=== PATIENT | female | born 1990 | race Caucasian/White ===

== ENCOUNTER 2020-12-03 19:31 | Inpatient (IN) | payer MEDICAID ==
[~2020-12-03] VITALS: Ht 152.4 cm; Wt 68.4 kg
[2020-12-03 21:18] LABS: BASO # 0.1 x10^3/uL (0.0-0.2); BASO % 1 % (0-3); EOS # 0.1 x10^3/uL (0.0-0.7); EOS % 1 % (0-3); HEMATOCRIT 40.1 % (36.0-47.0); LYMPH # 1.2 x10^3/uL (1.0-4.8); LYMPH % 7 % (24-48); MEAN CORPUSCULAR HEMOGLOBIN 40 pg (25-35); MEAN CORPUSCULAR HGB CONC 35 g/dL (31-37); MEAN CORPUSCULAR VOLUME 114 fL (79-100); MONO # 0.9 x10^3/uL (0.0-1.1); MONO % 5 % (0-9); NEUT # 15.4 x10^3/uL (1.8-7.7); NEUT % 87 % (31-73); PLATELET COUNT 220 x10^3/uL (140-400); RED BLOOD COUNT 3.52 x10^6/uL (3.50-5.40); RED CELL DISTRIBUTION WIDTH 15.3 % (11.5-14.5); WHITE BLOOD COUNT 17.6 x10^3/uL (4.0-11.0)
[2020-12-03] MEDS ORDERED: methylPREDNISolone SOD SUCC PF 125 MG/2 ML VIAL. IV ONE (21:30)
[2020-12-03] MEDS ORDERED: AMPICILLIN/SULBACTAM 3 GM in IV NORMAL SALINE 100ML 100 ML IV ONE (21:30)
[2020-12-03 21:31] LABS: ALBUMIN/GLOBULIN RATIO 1.1 (1.0-1.7); CALCIUM 9.2 mg/dL (8.5-10.1); CREATININE 0.9 mg/dL (0.6-1.0); MAGNESIUM 1.4 mg/dL (1.8-2.4); TOTAL BILIRUBIN 0.8 mg/dL (0.2-1.0); TOTAL PROTEIN 7.7 g/dL (6.4-8.2)
[2020-12-03 21:39] LABS: POTASSIUM 2.7 mmol/L (3.5-5.1)
[2020-12-03 21:42] LABS: % BANDS 2 % (0-9); % EOS 2 % (0-5); % LYMPHS 9 % (24-48); % MONOS 4 % (0-10); % SEGS 83 % (35-66)
[2020-12-03 21:43] LABS: PLT ESTIMATE ADEQUATE (ADEQUATE)
[2020-12-03 21:45] LABS: POLYCHROMASIA SLIGHT
[2020-12-03 21:48] LABS: TOXIC GRANULATION SLIGHT
--- NOTE | 2020-12-03 22:18 | PHYS DOC ---
Past Medical History Past Medical History: Fibromyalgia, Hypertension, Hypothyroid Past Surgical History: Tubal ligation Smoking Status: Current Every Day Smoker Alcohol Use: Occasionally General Adult EDM: Chief Complaint: SORE THROAT HPI: HPI: Patient is a 30 year old female who present to ER due to left-sided sore throat started earlier today. Patient denies any fever, no headache , no trouble breathing. Patient denies any abdominal pain. Patient has history of hypertension and hypothyroidism. Patient just moved here from [place] so she is not on any medication for high blood pressure. Review of Systems: Review of Systems: Constitutional: Denies fever or chills. [] Eyes: Denies change in visual acuity. [] HENT: Positive for sore throat Respiratory: Denies cough or shortness of breath. [] Cardiovascular: Denies chest pain or edema. [] GI: Denies abdominal pain, nausea, vomiting, bloody stools or diarrhea. [] : Denies dysuria. [] Musculoskeletal: Denies back pain or joint pain. [] Integument: Denies rash. [] Neurologic: Denies headache, focal weakness or sensory changes. [] Endocrine: Denies polyuria or polydipsia. [] Lymphatic: Denies swollen glands. [] Psychiatric: Denies depression or anxiety. [] Heart Score: C/O Chest Pain: N/A Risk Factors: Risk Factors: DM, Current or recent (<one month) smoker, HTN, HLP, family history of CAD, obesity. Risk Scores: Score 0 - 3: 2.5% MACE over next 6 weeks - Discharge Home Score 4 - 6: 20.3% MACE over next 6 weeks - Admit for Clinical Observation Score 7 - 10: 72.7% MACE over next 6 weeks - Early Invasive Strategies Current Medications: Current Medications Medications (Trade) Dose Ordered Sig/Ava Start Time Stop Time Status Last Admin Dose Admin Ampicillin Sodium/ Sulbactam Sodium 3 gm/Sodium Chloride 100 ml @ 200 mls/hr 1X ONCE 12/03/20 21:30 12/03/20 21:59 DC 12/03/20 21:21 200 MLS/HR Methylprednisolone Sodium Succinate (SOLU-Medrol 125MG VIAL) 125 mg 1X ONCE 12/03/20 21:30 12/03/20 21:31 DC 12/03/20 21:18 125 MG Potassium Chloride/Water 100 ml @ 100 mls/hr Q1H 12/03/20 22:15 12/04/20 00:14 UNV Allergies: Allergies: Allergies Coded Allergies Type Severity Reaction Last Updated Verified No Known Drug Allergies 12/03/20 No Physical Exam: PE: Constitutional: Well developed, well nourished, no acute distress, non-toxic appearance. [] HENT: Normocephalic, atraumatic, bilateral external ears normal, bilateral tonsillar hypertrophy with erythema, exudation on left tonsil. Tender to palpation on left side neck. No trismus. Eyes: PERRLA, EOMI, conjunctiva normal, no discharge. [] Neck: Normal range of motion, no tenderness, supple, no stridor. [] Cardiovascular:Heart rate regular rhythm, no murmur [] Lungs & Thorax: Bilateral breath sounds clear to auscultation [] Abdomen: Bowel sounds normal, soft, no tenderness, no masses, no pulsatile masses. [] Skin: Warm, dry, no erythema, no rash. [] Back: No tenderness, no CVA tenderness. [] Extremities: No tenderness, no cyanosis, no clubbing, ROM intact, no edema. [] Neurologic: Alert and oriented X 3, normal motor function, normal sensory function, no focal deficits noted. [] Psychologic: Affect normal, judgement normal, mood normal. [] Current Patient Data: Labs: Laboratory Tests Test 12/03/20 21:09 White Blood Count 17.6 x10^3/uL Red Blood Count 3.52 x10^6/uL Hemoglobin 14.0 g/dL Hematocrit 40.1 % Mean Corpuscular Volume 114 fL Mean Corpuscular Hemoglobin 40 pg Mean Corpuscular Hemoglobin Concent 35 g/dL Red Cell Distribution Width 15.3 % Platelet Count 220 x10^3/uL Neutrophils (%) (Auto) 87 % Lymphocytes (%) (Auto) 7 % Monocytes (%) (Auto) 5 % Eosinophils (%) (Auto) 1 % Basophils (%) (Auto) 1 % Neutrophils # (Auto) 15.4 x10^3/uL Lymphocytes # (Auto) 1.2 x10^3/uL Monocytes # (Auto) 0.9 x10^3/uL Eosinophils # (Auto) 0.1 x10^3/uL Basophils # (Auto) 0.1 x10^3/uL Segmented Neutrophils % 83 % Band Neutrophils % 2 % Lymphocytes % 9 % Monocytes % 4 % Eosinophils % 2 % Toxic Granulation Slight Platelet Estimate Adequate Polychromasia Slight Macrocytosis Marked Sodium Level 138 mmol/L Potassium Level 2.7 mmol/L Chloride Level 98 mmol/L Carbon Dioxide Level 30 mmol/L Anion Gap 10 Blood Urea Nitrogen 6 mg/dL Creatinine 0.9 mg/dL Estimated GFR (Cockcroft-Gault) 73.0 BUN/Creatinine Ratio 7 Glucose Level 108 mg/dL Calcium Level 9.2 mg/dL Magnesium Level 1.4 mg/dL Total Bilirubin 0.8 mg/dL Aspartate Amino Transf (AST/SGOT) 34 U/L Alanine Aminotransferase (ALT/SGPT) 32 U/L Alkaline Phosphatase 67 U/L Total Protein 7.7 g/dL Albumin 4.0 g/dL Albumin/Globulin Ratio 1.1 Current Medications Medications (Trade) Dose Ordered Sig/Ava Route PRN Reason Start Time Stop Time Status Last Admin Dose Admin Methylprednisolone Sodium Succinate (SOLU-Medrol 125MG VIAL) 125 mg 1X ONCE IV 12/03/20 21:30 12/03/20 21:31 DC 12/03/20 21:18 Ampicillin Sodium/ Sulbactam Sodium 3 gm/Sodium Chloride 100 ml @ 200 mls/hr 1X ONCE IV 12/03/20 21:30 12/03/20 21:59 DC 12/03/20 21:21 Potassium Chloride/Water 100 ml @ 100 mls/hr Q1H IV 12/03/20 23:00 12/04/20 00:59 12/03/20 22:28 Magnesium Sulfate 50 ml @ 25 mls/hr 1X ONCE IV 12/03/20 23:00 12/04/20 00:59 Potassium Chloride (Klor-Con) 40 meq 1X ONCE PO 12/03/20 22:30 12/03/20 22:31 DC Clonidine HCl (Catapres) 0.2 mg 1X ONCE PO 12/03/20 23:00 12/03/20 23:01 DC 12/03/20 23:40 Iohexol (Omnipaque 300 Mg/ml) 70 ml 1X ONCE IV 12/03/20 23:30 12/03/20 23:31 DC Info (CONTRAST GIVEN -- Rx MONITORING) 1 each PRN DAILY PRN MC SEE COMMENTS 7/5/21 23:00 12/05/20 22:59 Laboratory Tests Test 12/03/20 21:09 White Blood Count 17.6 x10^3/uL (4.0-11.0) H Red Blood Count 3.52 x10^6/uL (3.50-5.40) Hemoglobin 14.0 g/dL (12.0-15.5) Hematocrit 40.1 % (36.0-47.0) Mean Corpuscular Volume 114 fL (79-100) H Mean Corpuscular Hemoglobin 40 pg (25-35) H Mean Corpuscular Hemoglobin Concent 35 g/dL (31-37) Red Cell Distribution Width 15.3 % (11.5-14.5) H Platelet Count 220 x10^3/uL (140-400) Neutrophils (%) (Auto) 87 % (31-73) H Lymphocytes (%) (Auto) 7 % (24-48) L Monocytes (%) (Auto) 5 % (0-9) Eosinophils (%) (Auto) 1 % (0-3) Basophils (%) (Auto) 1 % (0-3) Neutrophils # (Auto) 15.4 x10^3/uL (1.8-7.7) H Lymphocytes # (Auto) 1.2 x10^3/uL (1.0-4.8) Monocytes # (Auto) 0.9 x10^3/uL (0.0-1.1) Eosinophils # (Auto) 0.1 x10^3/uL (0.0-0.7) Basophils # (Auto) 0.1 x10^3/uL (0.0-0.2) Segmented Neutrophils % 83 % (35-66) H Band Neutrophils % 2 % (0-9) Lymphocytes % 9 % (24-48) L Monocytes % 4 % (0-10) Eosinophils % 2 % (0-5) Toxic Granulation Slight Platelet Estimate Adequate (ADEQUATE) Polychromasia Slight Macrocytosis Marked Sodium Level 138 mmol/L (136-145) Potassium Level 2.7 mmol/L (3.5-5.1) *L Chloride Level 98 mmol/L (98-107) Carbon Dioxide Level 30 mmol/L (21-32) Anion Gap 10 (6-14) Blood Urea Nitrogen 6 mg/dL (7-20) L Creatinine 0.9 mg/dL (0.6-1.0) Estimated GFR (Cockcroft-Gault) 73.0 BUN/Creatinine Ratio 7 (6-20) Glucose Level 108 mg/dL (70-99) H Calcium Level 9.2 mg/dL (8.5-10.1) Magnesium Level 1.4 mg/dL (1.8-2.4) L Total Bilirubin 0.8 mg/dL (0.2-1.0) Aspartate Amino Transferase (AST) 34 U/L (15-37) Alanine Aminotransferase (ALT) 32 U/L (14-59) Alkaline Phosphatase 67 U/L (46-116) Total Protein 7.7 g/dL (6.4-8.2) Albumin 4.0 g/dL (3.4-5.0) Albumin/Globulin Ratio 1.1 (1.0-1.7) Laboratory Tests 12/03/20 21:09 Laboratory Tests 12/03/20 21:09 Vital Signs: Vital Signs Date Time Temp Pulse Resp B/P (MAP) Pulse Ox O2 Delivery O2 Flow Rate FiO2 12/03/20 20:55 98.3 120 20 205/127 (153) 99 Room Air 98.3 EKG: EKG: [] Radiology/Procedures: Radiology/Procedures: [][facility] [address] [place] [address] IMAGING REPORT Signed PATIENT: JULIAN PHILLIPS LACCOUNT: [id number] : 1990 LOCATION: ER AGE: 30 SEX: F EXAM STATUS: REG ER ORD. PHYSICIAN: MOOK MURILLO DO REASON: sorethroat, left side neck swelling and pain PROCEDURE: CT SOFT TISSUE NECK W/CONTRAST Examination: CT soft tissue neck with IV contrast HISTORY: History of sore throat, left-sided neck pain COMPARISON: None available Technique: Axial CT images of the soft tissue neck was performed with IV contrast. Coronal and sagittal reformats are performed Exposure: One or more of the following individualized dose reduction techniques were utilized for this examination: 1. Automated exposure control 2. Adjustment of the mA and/or kV according to patient size 3. Use of iterative reconstruction technique FINDINGS: The visualized parotid glands, submandibular glands grossly appears unremarkable.Minimal prominent bilateral tonsils without evidence of peritonsillar abscess. Small enlarged left cervical level II lymph nodes identified with the largest measuring 1.2 cm. The visualized vallecula, piriform sinuses, vocal cords, grossly appears unremarkable. Apical lungs are clear. No evidence of lytic bony destructive lesion. IMPRESSION: 1. Minimal prominent bilateral tonsils without evidence of peritonsillar abscess. 2. Small enlarged left cervical level 2 lymph nodes identified with the largest measuring 1.2 cm, likely reactive. Electronically signed by: Thomas Bai MD (12/03/2020 11:24 PM) [id number] DICTATED and SIGNED BY: THOMAS BAI MD DATE: 12/03/20 [id number] 0 Course & Med Decision Making: Course & Med Decision Making Pertinent Labs and Imaging studies reviewed. (See chart for details) Patient is a 30-year-old female who present to ER due to sore throat, patient without Acute tonsillitis without evidence abscess CT scan. He was found to be hypertensive, she does have history of hypertension but she not on medication. Her lab work showed low potassium and low magnesium level. Patient was given IV magnesium and p.o. potassium and IV potassium in the ER. Patient will be admitted to hospital for further evaluation and treatment. Discussed with the hospitalist on-call Dr. Frankel who agreed admit the patient. Patient is amenable to plan of care Dragon Disclaimer: Daisha Disclaimer: This electronic medical record was generated, in whole or in part, using a voice recognition dictation system. Departure Departure Impression: Primary Impression: Hypertension Additional Impressions: Hypomagnesemia Hypokalemia Acute tonsillitis Disposition: ADMITTED INPATIENT Admitting Physician: TREVOR (Dr. Mathis) Condition: IMPROVED Referrals: NO PCP (PCP) MOOK MURILLO DO Dec 03, 2020 22:17
[2020-12-03] MEDS: POTASSIUM CHLORIDE 10MEQ 100 ML IV SCH (22:28)
[2020-12-03] MEDS ORDERED: POTASSIUM CHLORIDE 10 MEQ TABLET.ER. PO ONE (22:30)
[2020-12-03] MEDS ORDERED: cloNIDine HCL 0.1 MG TABLET PO ONE (23:00)
[2020-12-03] MEDS ORDERED: MAGNESIUM SULFATE 2GM 50 ML IV ONE (23:00)
[2020-12-03] MEDS ORDERED: CONTRAST GIVEN. MC PRN (23:00)
--- NOTE | 2020-12-03 23:26 | RAD ---
Examination: CT soft tissue neck with IV contrast HISTORY: History of sore throat, left-sided neck pain COMPARISON: None available Technique: Axial CT images of the soft tissue neck was performed with IV contrast. Coronal and sagitt al reformats are performed Exposure: One or more of the following individualized dose reduction techniques were utilized for thi s examination: 1. Automated exposure control 2. Adjustment of the mA and/or kV according to patient size 3. Use of iterative reconstruction technique FINDINGS: The visualized parotid glands, submandibular glands grossly appears unremarkable.Minimal prominent bi lateral tonsils without evidence of peritonsillar abscess. Small enlarged left cervical level II lymp h nodes identified with the largest measuring 1.2 cm. The visualized vallecula, piriform sinuses, voc al cords, grossly appears unremarkable. Apical lungs are clear. No evidence of lytic bony destructive lesion. IMPRESSION: 1. Minimal prominent bilateral tonsils without evidence of peritonsillar abscess. 2. Small enlarged left cervical level 2 lymph nodes identified with the largest measuring 1.2 cm, tyron mtz reactive. Electronically signed by: Thomas Bai MD (12/03/2020 11:24 PM) [id number]
[2020-12-03] MEDS ORDERED: IOHEXOL 300 MG/ML 100ML VIAL. IV ONE (23:30)
[2020-12-03] MEDS ORDERED: ONDANSETRON PF 4 MG/2 ML VIAL. IV PRN (23:45)
[2020-12-04] MEDS: POTASSIUM CHLORIDE 10MEQ 100 ML IV SCH (00:33)
[2020-12-04 00:45] VITALS: BP 153/99
[2020-12-04] MEDS ORDERED: LEVO175T5 PO (01:05)
[2020-12-04 03:00] VITALS: BP 126/89
[2020-12-04] MEDS ORDERED: ACETAMINOPHEN 160 MG/5 ML ORAL.SUSP. PO PRN (06:00)
[2020-12-04] MEDS ORDERED: AMPICILLIN/SULBACTAM 3 GM in IV NORMAL SALINE 100ML 100 ML IV SCH (06:00)
[2020-12-04] MEDS ORDERED: traMADol 50 MG TABLET PO PRN (06:15)
[2020-12-04 06:45] LABS: ALBUMIN 3.3 g/dL (3.4-5.0); ALBUMIN/GLOBULIN RATIO 0.9 (1.0-1.7); CALCIUM 8.5 mg/dL (8.5-10.1); CREATININE 0.9 mg/dL (0.6-1.0); POTASSIUM 3.7 mmol/L (3.5-5.1); TOTAL BILIRUBIN 0.6 mg/dL (0.2-1.0); TOTAL PROTEIN 6.9 g/dL (6.4-8.2)
[2020-12-04 07:00] VITALS: BP 163/96
--- NOTE | 2020-12-04 07:03 | PDOC1 ---
History and Physical Date of Admission Date of Admission DATE: 12/04/20 TIME: 06:57 Identification/Chief Complaint Chief Complaint Sore throat Source Source: Patient History of Present Illness History of Present Illness Ms Almanza is a 30 year old female w/ PMHx fibromyalgia, HTN, hypothyroidism, smoker who present to ER due to left-sided sore throat started earlier on 12/03/2020. Patient denies any fever, no headache , no trouble breathing. Patient denies any abdominal pain. Patient has history of hypertension and hypothyroidism. Patient just moved here from [place] so she is not on any medication for high blood pressure. She is going through divorce and has 2 stepchildren 18 and 20 and 2 children of her own and has a lot of stress. 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 She notes prior to moving from [place] she had an reception who had increased her levothyroxine dosing to 175 mcg. Blood pressures been elevated since then but she thinks she feels better. Labs with WBC 17.6 with left shift, Hb 14 with MCV 114, platelets 225, NA 138, K2.7, magnesium 1.4, BUN 6, CR 0.9, glucose 108, albumin 3.3. CT head and neck showed bilateral enlarged tonsils and cervical adenopathy no peritonsillar abscess noted. Initial BP 205/127. HR 120bpm. Given IV ampicillin/sulbactam and IVF. Admitted for further care. Past Surgical History Past Surgical History: Tubal Ligation Family History Family History: Hypertension Social History Smoke: 1 pack per day ALCOHOL: rare Drugs: None Current Problem List Problem List Problems Medical Problems: (1) Acute tonsillitis Status: Acute (2) Hypertension Status: Acute (3) Hypokalemia Status: Acute (4) Hypomagnesemia Status: Acute Current Medications Current Medications Current Medications Methylprednisolone Sodium Succinate (SOLU-Medrol 125MG VIAL) 125 mg 1X ONCE IV Last administered on 12/03/20at 21:18; Start 12/03/20 at 21:30; Stop 12/03/20 at 21:31; Status DC Ampicillin Sodium/ Sulbactam Sodium 3 gm/Sodium Chloride 100 ml @ 200 mls/hr 1X ONCE IV Last administered on 12/03/20at 21:21; Start 12/03/20 at 21:30; Stop 12/03/20 at 21:59; Status DC Potassium Chloride/Water 100 ml @ 100 mls/hr Q1H IV Last administered on 12/04/20at 00:33; Start 12/03/20 at 23:00; Stop 12/04/20 at 00:59; Status DC Magnesium Sulfate 50 ml @ 25 mls/hr 1X ONCE IV Last administered on 12/03/20at 23:00; Start 12/03/20 at 23:00; Stop 12/04/20 at 00:59; Status DC Potassium Chloride (Klor-Con) 40 meq 1X ONCE PO Last administered on 12/03/20at 22:30; Start 12/03/20 at 22:30; Stop 12/03/20 at 22:31; Status DC Clonidine HCl (Catapres) 0.2 mg 1X ONCE PO Last administered on 12/03/20at 23:40; Start 12/03/20 at 23:00; Stop 12/03/20 at 23:01; Status DC Iohexol (Omnipaque 300 Mg/ml) 70 ml 1X ONCE IV ; Start 12/03/20 at 23:30; Stop 12/03/20 at 23:31; Status DC Info (CONTRAST GIVEN -- Rx MONITORING) 1 each PRN DAILY PRN MC SEE COMMENTS; Start 12/03/20 at 23:00; Stop 12/05/20 at 22:59 Ondansetron HCl (Zofran) 4 mg PRN Q8HRS PRN IV NAUSEA/VOMITING 1ST CHOICE; Start 12/03/20 at 23:45; Stop 12/04/20 at 23:44 Ampicillin Sodium/ Sulbactam Sodium 3 gm/Sodium Chloride 100 ml @ 200 mls/hr Q6HRS IV Last administered on 12/04/20at 05:06; Start 12/04/20 at 06:00 Amlodipine Besylate (Norvasc) 10 mg DAILY PO ; Start 12/04/20 at 09:00 Acetaminophen (Children'S Tylenol) 640 mg PRN Q6HRS PRN PO MILD PAIN / TEMP > 100.3'F; Start 12/04/20 at 06:00 Tramadol HCl (Ultram) 50 mg PRN Q6HRS PRN PO MODERATE PAIN 4-6; Start 12/04/20 at 06:15 Active Scripts Active Reported Levothyroxine Sodium 175 Mcg Tablet 1 Tab PO DAILY Allergies Allergies: Coded Allergies: No Known Drug Allergies (Unverified , 12/03/20) ROS General: YES: Fatigue, Malaise, Appetite; No: Chills, Night Sweats, Other PSYCHOLOGICAL ROS: No: Anxiety, Behavioral Disorder, Concentration difficultie, Decreased libido, Depression, Disorientation, Hallucinations, Hostility, Irritablity, Memory difficulties, Mood Swings, Obsessive thoughts, Physical abuse, Sexual abuse, Sleep disturbances, Suicidal ideation, Other Eyes: No Blurry vision, No Decreased vision, No Double vision, No Dry eyes, No Excessive tearing, No Eye Pain, No Itchy Eyes, No Loss of vision, No Photophobia, No Scotomata, No Uses contacts, No Uses glasses, No Other HEENT: YES: Oral lesions, Sore Throat; No: Heacaches, Visual Changes, Hearing change, Nasal congestion, Nasal discharge, Sinus pain, Epistaxis, Sneezing, Snoring, Tinnitus, Vertigo, Vocal changes, Other ALLERGY AND IMMUNOLOGY: No: Hives, Insect Bite Sensitivity, Itchy/Watery Eyes, Nasal Congestion, Post Nasal Drip, Seasonal Allergies, Other Hematological and Lymphatic: No: Bleeding Problems, Blood Clots, Blood Transfusions, Brusing, Night Sweats, Pallor, Swollen Lymph Nodes, Other ENDOCRINE: No: Breast Changes, Galactorrhea, Hair Pattern Changes, Hot Flashes, Malaise/lethargy, Mood Swings, Palpitations, Polydipsia/polyuria, Skin Changes, Temperature Intolerance, Unexpected Weight Changes, Other Breast: No New/Changing Breast Lumps, No Nipple changes, No Nipple discharge, No Other Respiratory: No: Cough, Hemoptysis, Orthopnea, Pleuritic Pain, Shortness of breath, SOB with excertion, Sputum Changes, Stridor, Tachypnea, Wheezing, Other Cardiovascular: No Chest Pain, No Palpitations, No Orthopnea, No Paroxysmal Noc. Dyspnea, No Edema, No Lt Headedness, No Other Gastrointestinal: Yes Nausea; No Vomiting, No Abdominal Pain, No Diarrhea, No Constipation, No Melena, No Hematochezia, No Other Genitourinary: No Dysuria, No Frequency, No Incontinence, No Hematuria, No Retention, No Discharge, No Urgency, No Pain, No Flank Pain, No Other, No , No , No , No , No , No , No Musculoskeletal: No Gait Disturbance, No Joint Pain, No Joint Stiffness, No Joint Swelling, No Muscle Pain, No Muscular Weakness, No Pain In:, No Swelling In:, No Other Neurological: No Behavorial Changes, No Bowel/Bladder ControlChng, No Confusion, No Dizziness, No Gait Disturbance, No Headaches, No Impaired Coord/b alance, No Memory Loss, No Numbness/Tingling, No Seizures, No Speech Problems, No Tremors, No Visual Changes, No Weakness, No Other Skin: No Dry Skin, No Eczema, No Hair Changes, No Lumps, No Mole Changes, No Mottling, No Nail Changes, No Pruritus, No Rash, No Skin Lesion Changes, No Other, No Acne Physical Exam General: Alert, Oriented X3, Cooperative, mild distress HEENT: Atraumatic, PERRLA, EOMI, Mucous membr. moist/pink, Other (Bilateral L>R tonsillar exudate. Bilateral L>R anterior cervical adenopathy) Lungs: Clear to auscultation, Normal air movement Heart: S1S2, RRR, no thrills, no rubs, no gallops, no murmurs Abdomen: Normal bowel sounds, Soft, No tenderness, No hepatosplenomegaly, No masses Rectal Exam: not examined Extremities: No clubbing, No cyanosis, No edema, Normal pulses, No tenderness/swelling Skin: No rashes, No breakdown, No significant lesion Neuro: Normal gait, Normal speech, Strength at 5/5 X4 ext, Normal tone, Sensation intact, Cranial nerves 3-12 NL, Reflexes 2+ Psych/Mental Status: Mental status NL, Mood NL Vitals Vitals Vital Signs Date Time Temp Pulse Resp B/P (MAP) Pulse Ox O2 Delivery O2 Flow Rate FiO2 12/04/20 03:00 98.4 84 20 126/89 (101) 98 Room Air 98.4 Labs Labs Laboratory Tests Test 12/03/20 21:09 12/03/20 23:51 12/04/20 06:05 White Blood Count 17.6 x10^3/uL (4.0-11.0) Red Blood Count 3.52 x10^6/uL (3.50-5.40) Hemoglobin 14.0 g/dL (12.0-15.5) Hematocrit 40.1 % (36.0-47.0) Mean Corpuscular Volume 114 fL (79-100) Mean Corpuscular Hemoglobin 40 pg (25-35) Mean Corpuscular Hemoglobin Concent 35 g/dL (31-37) Red Cell Distribution Width 15.3 % (11.5-14.5) Platelet Count 220 x10^3/uL (140-400) Neutrophils (%) (Auto) 87 % (31-73) Lymphocytes (%) (Auto) 7 % (24-48) Monocytes (%) (Auto) 5 % (0-9) Eosinophils (%) (Auto) 1 % (0-3) Basophils (%) (Auto) 1 % (0-3) Neutrophils # (Auto) 15.4 x10^3/uL (1.8-7.7) Lymphocytes # (Auto) 1.2 x10^3/uL (1.0-4.8) Monocytes # (Auto) 0.9 x10^3/uL (0.0-1.1) Eosinophils # (Auto) 0.1 x10^3/uL (0.0-0.7) Basophils # (Auto) 0.1 x10^3/uL (0.0-0.2) Segmented Neutrophils % 83 % (35-66) Band Neutrophils % 2 % (0-9) Lymphocytes % 9 % (24-48) Monocytes % 4 % (0-10) Eosinophils % 2 % (0-5) Toxic Granulation Slight Platelet Estimate Adequate (ADEQUATE) Polychromasia Slight Macrocytosis Marked Sodium Level 138 mmol/L (136-145) 138 mmol/L (136-145) Potassium Level 2.7 mmol/L (3.5-5.1) 3.7 mmol/L (3.5-5.1) Chloride Level 98 mmol/L (98-107) 101 mmol/L (98-107) Carbon Dioxide Level 30 mmol/L (21-32) 28 mmol/L (21-32) Anion Gap 10 (6-14) 9 (6-14) Blood Urea Nitrogen 6 mg/dL (7-20) 4 mg/dL (7-20) Creatinine 0.9 mg/dL (0.6-1.0) 0.9 mg/dL (0.6-1.0) Estimated GFR (Cockcroft-Gault) 73.0 73.0 BUN/Creatinine Ratio 7 (6-20) 4 (6-20) Glucose Level 108 mg/dL (70-99) 172 mg/dL (70-99) Calcium Level 9.2 mg/dL (8.5-10.1) 8.5 mg/dL (8.5-10.1) Magnesium Level 1.4 mg/dL (1.8-2.4) Total Bilirubin 0.8 mg/dL (0.2-1.0) 0.6 mg/dL (0.2-1.0) Aspartate Amino Transf (AST/SGOT) 34 U/L (15-37) 25 U/L (15-37) Alanine Aminotransferase (ALT/SGPT) 32 U/L (14-59) 25 U/L (14-59) Alkaline Phosphatase 67 U/L (46-116) 56 U/L (46-116) Total Protein 7.7 g/dL (6.4-8.2) 6.9 g/dL (6.4-8.2) Albumin 4.0 g/dL (3.4-5.0) 3.3 g/dL (3.4-5.0) Albumin/Globulin Ratio 1.1 (1.0-1.7) 0.9 (1.0-1.7) SARS-CoV-2 Antigen (Rapid) Negative (NEGATIVE) Laboratory Tests Test 12/03/20 21:09 12/03/20 23:51 12/04/20 06:05 White Blood Count 17.6 x10^3/uL (4.0-11.0) Red Blood Count 3.52 x10^6/uL (3.50-5.40) Hemoglobin 14.0 g/dL (12.0-15.5) Hematocrit 40.1 % (36.0-47.0) Mean Corpuscular Volume 114 fL (79-100) Mean Corpuscular Hemoglobin 40 pg (25-35) Mean Corpuscular Hemoglobin Concent 35 g/dL (31-37) Red Cell Distribution Width 15.3 % (11.5-14.5) Platelet Count 220 x10^3/uL (140-400) Neutrophils (%) (Auto) 87 % (31-73) Lymphocytes (%) (Auto) 7 % (24-48) Monocytes (%) (Auto) 5 % (0-9) Eosinophils (%) (Auto) 1 % (0-3) Basophils (%) (Auto) 1 % (0-3) Neutrophils # (Auto) 15.4 x10^3/uL (1.8-7.7) Lymphocytes # (Auto) 1.2 x10^3/uL (1.0-4.8) Monocytes # (Auto) 0.9 x10^3/uL (0.0-1.1) Eosinophils # (Auto) 0.1 x10^3/uL (0.0-0.7) Basophils # (Auto) 0.1 x10^3/uL (0.0-0.2) Segmented Neutrophils % 83 % (35-66) Band Neutrophils % 2 % (0-9) Lymphocytes % 9 % (24-48) Monocytes % 4 % (0-10) Eosinophils % 2 % (0-5) Toxic Granulation Slight Platelet Estimate Adequate (ADEQUATE) Polychromasia Slight Macrocytosis Marked Sodium Level 138 mmol/L (136-145) 138 mmol/L (136-145) Potassium Level 2.7 mmol/L (3.5-5.1) 3.7 mmol/L (3.5-5.1) Chloride Level 98 mmol/L (98-107) 101 mmol/L (98-107) Carbon Dioxide Level 30 mmol/L (21-32) 28 mmol/L (21-32) Anion Gap 10 (6-14) 9 (6-14) Blood Urea Nitrogen 6 mg/dL (7-20) 4 mg/dL (7-20) Creatinine 0.9 mg/dL (0.6-1.0) 0.9 mg/dL (0.6-1.0) Estimated GFR (Cockcroft-Gault) 73.0 73.0 BUN/Creatinine Ratio 7 (6-20) 4 (6-20) Glucose Level 108 mg/dL (70-99) 172 mg/dL (70-99) Calcium Level 9.2 mg/dL (8.5-10.1) 8.5 mg/dL (8.5-10.1) Magnesium Level 1.4 mg/dL (1.8-2.4) Total Bilirubin 0.8 mg/dL (0.2-1.0) 0.6 mg/dL (0.2-1.0) Aspartate Amino Transf (AST/SGOT) 34 U/L (15-37) 25 U/L (15-37) Alanine Aminotransferase (ALT/SGPT) 32 U/L (14-59) 25 U/L (14-59) Alkaline Phosphatase 67 U/L (46-116) 56 U/L (46-116) Total Protein 7.7 g/dL (6.4-8.2) 6.9 g/dL (6.4-8.2) Albumin 4.0 g/dL (3.4-5.0) 3.3 g/dL (3.4-5.0) Albumin/Globulin Ratio 1.1 (1.0-1.7) 0.9 (1.0-1.7) SARS-CoV-2 Antigen (Rapid) Negative (NEGATIVE) Images Images CT soft tissue neck with IV contrast: The visualized parotid glands, submandibular glands grossly appears unremarkable.Minimal prominent bilateral tonsils without evidence of peritonsillar abscess. Small enlarged left cervical level II lymph nodes identified with the largest measuring 1.2 cm. The visualized vallecula, piriform sinuses, vocal cords, grossly appears unremarkable. Apical lungs are clear. No evidence of lytic bony destructive lesion. IMPRESSION: 1. Minimal prominent bilateral tonsils without evidence of peritonsillar abscess. 2. Small enlarged left cervical level 2 lymph nodes identified with the largest measuring 1.2 cm, likely reactive. VTE Prophylaxis Ordered VTE Prophylaxis Devices: No VTE Pharmacological Prophylaxi: No Assessment/Plan Assessment/Plan A/P: Acute tonsillitis - will treat as strep tonsillitis/pharyngitis. Can change to oral augmentin when able to take PO better Hypertensive urgency - Elevated blood pressure without formal diagnosis of Hypertension at baseline. Amlodipine started given urgency Hypomagnesemia - replaced. Likely nutritional Hypokalemia - replaced. Possibly related to higher levothyroxine dosing, recommend reducing her dosing Macrocytosis - likely folate and mild B12 deficiency. Recommend supplementation Hypothyroidism - no prior labs available. based on body weight would recommend reducing her levothyroxine dosing given her elevated BP and electrolyte abnormalities Obesity - counseled on lifestyle modification. FEN - ADAT PPX - SCDs FULL CODE Dispo - admit for HTN urgency and sepsis due to strep tonsillitis/pharyngitis Justifications for Admission Other Justification NELLIE PATEL MD Dec 04, 2020 07:03
[2020-12-04] MEDS ORDERED: LEVOTHYROXINE 125 MCG TABLET PO SCH (07:15)
[2020-12-04] MEDS ORDERED: AMOXICILLIN/K CLAV 875/125MG TABLET. PO SCH (10:00)
[2020-12-04 11:00] VITALS: BP 154/108
--- NOTE | 2020-12-04 12:32 | NUR ---
SW following. Discussed with RN, pt from home with family, room air, regular diet, rapid COVID-19 negative. Pt currently on IV abx. RN advised no SW needs at this time. SW will continue to follow.
[2020-12-04] MEDS ORDERED: LOSA25TA54 PO (12:58)
[2020-12-04] MEDS ORDERED: AMOX1TAB11 PO (12:58)
--- NOTE | 2020-12-04 13:09 | PDOC3 ---
Discharge Summary Visit Information Date of Admission: Dec 03, 2020 Date of Discharge: Dec 04, 2020 Admitting Diagnosis: Sepsis, tonsillitis, hypokalemia, hypomagnesmia Final Diagnosis Problems Medical Problems: (1) Acute tonsillitis Status: Acute (2) Hypertension Status: Acute (3) Hypokalemia Status: Acute (4) Hypomagnesemia Status: Acute Brief Hospital Course Allergies Allergies Coded Allergies Type Severity Reaction Last Updated Verified No Known Drug Allergies 12/03/20 No Vital Signs Vital Signs Date Time Temp Pulse Resp B/P (MAP) Pulse Ox O2 Delivery O2 Flow Rate FiO2 12/04/20 11:00 98.0 76 18 154/108 (123) 98 98.0 12/04/20 07:45 Room Air Lab Results Laboratory Tests Test 12/03/20 21:09 12/03/20 23:51 12/04/20 06:05 White Blood Count 17.6 x10^3/uL (4.0-11.0) Red Blood Count 3.52 x10^6/uL (3.50-5.40) Hemoglobin 14.0 g/dL (12.0-15.5) Hematocrit 40.1 % (36.0-47.0) Mean Corpuscular Volume 114 fL (79-100) Mean Corpuscular Hemoglobin 40 pg (25-35) Mean Corpuscular Hemoglobin Concent 35 g/dL (31-37) Red Cell Distribution Width 15.3 % (11.5-14.5) Platelet Count 220 x10^3/uL (140-400) Neutrophils (%) (Auto) 87 % (31-73) Lymphocytes (%) (Auto) 7 % (24-48) Monocytes (%) (Auto) 5 % (0-9) Eosinophils (%) (Auto) 1 % (0-3) Basophils (%) (Auto) 1 % (0-3) Neutrophils # (Auto) 15.4 x10^3/uL (1.8-7.7) Lymphocytes # (Auto) 1.2 x10^3/uL (1.0-4.8) Monocytes # (Auto) 0.9 x10^3/uL (0.0-1.1) Eosinophils # (Auto) 0.1 x10^3/uL (0.0-0.7) Basophils # (Auto) 0.1 x10^3/uL (0.0-0.2) Segmented Neutrophils % 83 % (35-66) Band Neutrophils % 2 % (0-9) Lymphocytes % 9 % (24-48) Monocytes % 4 % (0-10) Eosinophils % 2 % (0-5) Toxic Granulation Slight Platelet Estimate Adequate (ADEQUATE) Polychromasia Slight Macrocytosis Marked Sodium Level 138 mmol/L (136-145) 138 mmol/L (136-145) Potassium Level 2.7 mmol/L (3.5-5.1) 3.7 mmol/L (3.5-5.1) Chloride Level 98 mmol/L (98-107) 101 mmol/L (98-107) Carbon Dioxide Level 30 mmol/L (21-32) 28 mmol/L (21-32) Anion Gap 10 (6-14) 9 (6-14) Blood Urea Nitrogen 6 mg/dL (7-20) 4 mg/dL (7-20) Creatinine 0.9 mg/dL (0.6-1.0) 0.9 mg/dL (0.6-1.0) Estimated GFR (Cockcroft-Gault) 73.0 73.0 BUN/Creatinine Ratio 7 (6-20) 4 (6-20) Glucose Level 108 mg/dL (70-99) 172 mg/dL (70-99) Calcium Level 9.2 mg/dL (8.5-10.1) 8.5 mg/dL (8.5-10.1) Magnesium Level 1.4 mg/dL (1.8-2.4) 2.4 mg/dL (1.8-2.4) Total Bilirubin 0.8 mg/dL (0.2-1.0) 0.6 mg/dL (0.2-1.0) Aspartate Amino Transf (AST/SGOT) 34 U/L (15-37) 25 U/L (15-37) Alanine Aminotransferase (ALT/SGPT) 32 U/L (14-59) 25 U/L (14-59) Alkaline Phosphatase 67 U/L (46-116) 56 U/L (46-116) Total Protein 7.7 g/dL (6.4-8.2) 6.9 g/dL (6.4-8.2) Albumin 4.0 g/dL (3.4-5.0) 3.3 g/dL (3.4-5.0) Albumin/Globulin Ratio 1.1 (1.0-1.7) 0.9 (1.0-1.7) SARS-CoV-2 Antigen (Rapid) Negative (NEGATIVE) Vitamin B12 Level 386 pg/mL (247-911) Thyroid Stimulating Hormone (TSH) 0.747 uIU/mL (0.358-3.74) Laboratory Tests Test 12/03/20 21:09 12/03/20 23:51 12/04/20 06:05 White Blood Count 17.6 x10^3/uL (4.0-11.0) Red Blood Count 3.52 x10^6/uL (3.50-5.40) Hemoglobin 14.0 g/dL (12.0-15.5) Hematocrit 40.1 % (36.0-47.0) Mean Corpuscular Volume 114 fL (79-100) Mean Corpuscular Hemoglobin 40 pg (25-35) Mean Corpuscular Hemoglobin Concent 35 g/dL (31-37) Red Cell Distribution Width 15.3 % (11.5-14.5) Platelet Count 220 x10^3/uL (140-400) Neutrophils (%) (Auto) 87 % (31-73) Lymphocytes (%) (Auto) 7 % (24-48) Monocytes (%) (Auto) 5 % (0-9) Eosinophils (%) (Auto) 1 % (0-3) Basophils (%) (Auto) 1 % (0-3) Neutrophils # (Auto) 15.4 x10^3/uL (1.8-7.7) Lymphocytes # (Auto) 1.2 x10^3/uL (1.0-4.8) Monocytes # (Auto) 0.9 x10^3/uL (0.0-1.1) Eosinophils # (Auto) 0.1 x10^3/uL (0.0-0.7) Basophils # (Auto) 0.1 x10^3/uL (0.0-0.2) Segmented Neutrophils % 83 % (35-66) Band Neutrophils % 2 % (0-9) Lymphocytes % 9 % (24-48) Monocytes % 4 % (0-10) Eosinophils % 2 % (0-5) Toxic Granulation Slight Platelet Estimate Adequate (ADEQUATE) Polychromasia Slight Macrocytosis Marked Sodium Level 138 mmol/L (136-145) 138 mmol/L (136-145) Potassium Level 2.7 mmol/L (3.5-5.1) 3.7 mmol/L (3.5-5.1) Chloride Level 98 mmol/L (98-107) 101 mmol/L (98-107) Carbon Dioxide Level 30 mmol/L (21-32) 28 mmol/L (21-32) Anion Gap 10 (6-14) 9 (6-14) Blood Urea Nitrogen 6 mg/dL (7-20) 4 mg/dL (7-20) Creatinine 0.9 mg/dL (0.6-1.0) 0.9 mg/dL (0.6-1.0) Estimated GFR (Cockcroft-Gault) 73.0 73.0 BUN/Creatinine Ratio 7 (6-20) 4 (6-20) Glucose Level 108 mg/dL (70-99) 172 mg/dL (70-99) Calcium Level 9.2 mg/dL (8.5-10.1) 8.5 mg/dL (8.5-10.1) Magnesium Level 1.4 mg/dL (1.8-2.4) 2.4 mg/dL (1.8-2.4) Total Bilirubin 0.8 mg/dL (0.2-1.0) 0.6 mg/dL (0.2-1.0) Aspartate Amino Transf (AST/SGOT) 34 U/L (15-37) 25 U/L (15-37) Alanine Aminotransferase (ALT/SGPT) 32 U/L (14-59) 25 U/L (14-59) Alkaline Phosphatase 67 U/L (46-116) 56 U/L (46-116) Total Protein 7.7 g/dL (6.4-8.2) 6.9 g/dL (6.4-8.2) Albumin 4.0 g/dL (3.4-5.0) 3.3 g/dL (3.4-5.0) Albumin/Globulin Ratio 1.1 (1.0-1.7) 0.9 (1.0-1.7) SARS-CoV-2 Antigen (Rapid) Negative (NEGATIVE) Vitamin B12 Level 386 pg/mL (247-911) Thyroid Stimulating Hormone (TSH) 0.747 uIU/mL (0.358-3.74) Brief Hospital Course Ms Almanza is a 30 year old female w/ PMHx fibromyalgia, HTN, hypothyroidism, smoker who present to ER due to left-sided sore throat started earlier on 12/03/2020. Patient denies any fever, no headache , no trouble breathing. Patient denies any abdominal pain. Patient has history of hypertension and hypothyroidism. Patient just moved here from [place] so she is not on any medication for high blood pressure. She is going through divorce and has 2 stepchildren 18 and 20 and 2 children of her own and has a lot of stress. 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 She notes prior to moving from [place] she had an car greaser who had increased her levothyroxine dosing to 175 mcg. Blood pressures been elevated since then but she thinks she feels better. Labs with WBC 17.6 with left shift, Hb 14 with MCV 114, platelets 225, NA 138, K2.7, magnesium 1.4, BUN 6, CR 0.9, glucose 108, albumin 3.3. CT head and neck showed bilateral enlarged tonsils and cervical adenopathy no peritonsillar abscess noted. Initial BP 205/127. HR 120bpm. Given IV ampicillin/sulbactam and IVF. Admitted for further care. After 2 doses of ampicillin was transitioned to oral Augmentin and able to tolerate a soft diet well. Heart rate slowed in the 70s and electrolyte's were replaced and improved. She was very anxious to go home and as she was tolerating p.o. antibiotics and recovered from sepsis was instructed to establish primary care outpatient and to reduce her levothyroxine dosing and given her hypokalemia and hyperglycemia hemoglobin A1c is pending at this time will start on losartan 25 mg daily for blood pressure advised to have a potassium check in 1 to 2 weeks. Problem list: Acute tonsillitis - treated as strep tonsillitis/pharyngitis. Changed to oral augmentin when able to take PO better Hypertensive urgency - Elevated blood pressure without formal diagnosis of Hypertension at baseline. Amlodipine started given urgency --> losartan on d/c given likely prediabetes/DM2 Hypomagnesemia - replaced. Likely nutritional Hypokalemia - replaced. Possibly related to higher levothyroxine dosing, recommend reducing her dosing Macrocytosis - likely folate and mild B12 deficiency. Recommend supplementation Hypothyroidism - no prior labs available. based on body weight would recommend reducing her levothyroxine dosing given her elevated BP and electrolyte abnormalities Obesity - counseled on lifestyle modification. Hyperglycemia - at the very least is probably prediabetic given 2 elevated fasting glucose levels, though stress and sepsis may artificially elevate this. Will f/u a1c and call in metformin 500mg BID with meals if A1c 5.7 or greater. If > 8, will also call in a DPP4 and SGLT-2. Given script for glucometer 67 minutes spent on same day admit and d/c Discharge Information Condition at Discharge: Improved Follow Up: Weeks (2) Disposition/Orders: D/C to Home Scheduled Levothyroxine Sodium (Levothyroxine Sodium) 175 Mcg Tablet, 1 TAB PO DAILY for hypothyroid, #30 Ref 5 (Reported) Entered as Reported by: PETER OCHOA on 12/04/20104 Last Taken: Unknown Dose on Unknown Date & Time Last Action: Continued on 12/04/20 07 by NELLIE PATEL MD Justicifation of Admission Dx: Justifications for Admission: Justification of Admission Dx: Yes CHF: Sev. Electrolyte Abnormal NELLIE PATEL MD Dec 04, 2020 13:09
[2020-12-04] MEDS ORDERED: CYANOCOBALAMIN (VITAMIN B-12) 1,000 MCG/ML VIAL. IM ONE (14:00)
--- NOTE | 2020-12-04 14:57 | NUR ---
Discharge Note: [facility] Discharge instructions and discharge home medications reviewed with Patient and a copy given. All questions have been answered and understanding verbalized. The following instructions and handouts were given: discharge instructions, new prescriptions, education and follow up recommendations. Discontinued lines and drains: Peripheral IV discontinued intact. Patient discharged to Home or Self Care with Self via ambulated off unit with [employer] to personal vehicle
[2020-12-05 00:08] LABS: HEMOGLOBIN A1C 4.9 % (4.8-5.6)
== END 2020-12-04 14:59 | disposition home or self-care (01) | DRG 872 ==
LOC: ER 19:31 → 6 SOUTH 23:40
PROVIDERS: ADMIT Internal Medicine; ATTEND Internal Medicine
DX: A41.9 Sepsis, unspecified organism (principal); E87.6 Hypokalemia; I10 Essential (primary) hypertension; E03.9 Hypothyroidism, unspecified; F17.210 Nicotine dependence, cigarettes, uncomplicated; M79.7 Fibromyalgia; E83.42 Hypomagnesemia; J03.00 Acute streptococcal tonsillitis, unspecified; I16.0 Hypertensive urgency; E53.8 Deficiency of other specified B group vitamins; E11.65 Type 2 diabetes mellitus with hyperglycemia; R59.0 Localized enlarged lymph nodes; Z20.822 Contact with and (suspected) exposure to COVID-19; Z79.84 Long term (current) use of oral hypoglycemic drugs; Z82.49 Family history of ischemic heart disease and other diseases of the circulatory system
CPT/HCPCS: 36415; 70491; 80053; 82607; 83036; 83735; 84443; 85007; 85025; 87426; 96365; 96366; 96367; 96375; J0295; J2930; J3420; J3475; J3480; U0003; U0005; 99285-25; G0378